=== PATIENT | male | born 1970 | race Two or more races ===

== ENCOUNTER 2021-05-23 18:27 | Inpatient (IN) | payer OTHER ==
[2021-05-23] MEDS ORDERED: ACETAMINOPHEN 325 MG TABLET (FP) PO PRN ×2 (20:58)
[2021-05-23] MEDS ORDERED: BISMUTH SUBSALICYLATE 524 MG/30 ML PO PRN (20:58)
[2021-05-23] MEDS ORDERED: MENTHOL/PHENOL 1 EACH UD MM PRN (20:58)
[2021-05-23] MEDS ORDERED: NICOTINE POLACRILEX 2 MG GUM BUC PRN (20:58)
[2021-05-23] MEDS ORDERED: MAG HYDROX/AL HYDROX/SIMETH 30 ML UNIT-DOSE CUP PO PRN (20:58)
[2021-05-23] MEDS ORDERED: LOPERAMIDE HCL 2 MG CAPSULE PO PRN (20:58)
[2021-05-23] MEDS ORDERED: MAGNESIUM HYDROX 2400MG/30ML ORAL SUSPENSION 30 ML CUP PO PRN (20:58)
[2021-05-23] MEDS ORDERED: MAGNESIUM CITRATE 300 ML BOTTLE PO PRN (20:58)
[2021-05-23] MEDS ORDERED: ONDANSETRON *ODT* 4 MG TABLET SL PRN (20:58)
[2021-05-24 00:05] VITALS: BMI 28.4
[2021-05-24] MEDS: METHOCARBAMOL 500 MG TABLET PO PRN ×3 (02:12→22:17)
[2021-05-24] MEDS: hydrOXYzine PAMOATE 25 MG CAPSULE (FP) PO PRN ×4 (02:12→22:14)
[2021-05-24] MEDS: THIAMINE HCL 100 MG TABLET (FP) PO SCH ×2 (02:25→22:14)
[2021-05-24] MEDS ORDERED: chlordiazePOXIDE HCL 25 MG CAPSULE PO PRN (06:31)
[2021-05-24] MEDS: IBUPROFEN 400 MG TABLET (FP) PO PRN (06:58)
[2021-05-24] MEDS ORDERED: methaDONE HCL 10 MG TABLET PO ONE (08:45)
[2021-05-24] MEDS ORDERED: methaDONE HCL 10 MG TABLET ONE (09:20)
[2021-05-24] MEDS ORDERED: methaDONE HCL 40 MG DISPERSABLE TABLET ONE (09:21)
[2021-05-24] MEDS: chlordiazePOXIDE HCL 25 MG CAPSULE PO SCH ×3 (10:33→22:15)
[2021-05-24] MEDS: PRENATAL VITAMINS W/ FOLIC ACID TABLET (FP) PO SCH (10:35)
[2021-05-24 11:00] LABS: HEMATOCRIT 39.3 % (35.4-49); MCH 30.5 pg (25.7-33.7); MEAN CELL VOLUME 92.5 fl (80-96); MEAN PLT VOLUME 9.6 fl (7.5-11.1); PLATELET COUNT 151 10^3/uL (134-434); RBC 4.24 M/mm3 (4.00-5.60); RDW 13.8 % (11.9-15.9); WHITE BLOOD COUNT 3.3 K/mm3 (4.0-10.0)
[2021-05-24 11:03] LABS: ALBUMIN 3.1 g/dl (3.4-5.0); CALCIUM 8.7 mg/dL (8.5-10.1)
[2021-05-24 11:04] LABS: BLOOD UREA NITROGEN 18.1 mg/dL (7-18)
[2021-05-24 11:07] LABS: CREATININE 0.8 mg/dL (0.55-1.3)
[2021-05-24 11:08] LABS: TOT PROT 6.6 g/dl (6.4-8.2)
[2021-05-24 11:09] LABS: BILIRUBIN,TOTAL 0.3 mg/dL (0.2-1)
[2021-05-24] MEDS: MELATONIN 5 MG TABLETS PO PRN (22:15)
[2021-05-25] MEDS ORDERED: methaDONE HCL 10 MG TABLET ONE (04:34)
[2021-05-25] MEDS ORDERED: methaDONE HCL 40 MG DISPERSABLE TABLET ONE (04:34)
[2021-05-25] MEDS: chlordiazePOXIDE HCL 25 MG CAPSULE PO SCH ×4 (05:45→22:17)
[2021-05-25] MEDS: hydrOXYzine PAMOATE 25 MG CAPSULE (FP) PO PRN ×3 (05:45→15:31)
[2021-05-25] MEDS: METHOCARBAMOL 500 MG TABLET PO PRN ×2 (05:46→15:32)
[2021-05-25] MEDS ORDERED: methaDONE HCL 10 MG TABLET PO SCH (06:00)
[2021-05-25] MEDS: PRENATAL VITAMINS W/ FOLIC ACID TABLET (FP) PO SCH (10:13)
[2021-05-25] MEDS: GABAPENTIN 100 MG CAPSULE PO SCH ×2 (15:31→22:17)
[2021-05-25] MEDS: IBUPROFEN 400 MG TABLET (FP) PO PRN (15:31)
[2021-05-25] MEDS: THIAMINE HCL 100 MG TABLET (FP) PO SCH (22:17)
[2021-05-25] MEDS: MELATONIN 5 MG TABLETS PO PRN (22:17)
[2021-05-26] MEDS ORDERED: methaDONE HCL 10 MG TABLET ONE (04:32)
[2021-05-26] MEDS ORDERED: methaDONE HCL 40 MG DISPERSABLE TABLET ONE (04:32)
[2021-05-26] MEDS: chlordiazePOXIDE HCL 25 MG CAPSULE PO SCH ×4 (06:04→22:12)
[2021-05-26] MEDS: hydrOXYzine PAMOATE 25 MG CAPSULE (FP) PO PRN ×2 (06:06→17:40)
[2021-05-26 10:07] LABS: SARS-CoV-2 NAA Not Detected (Not Detected)
[2021-05-26] MEDS: PRENATAL VITAMINS W/ FOLIC ACID TABLET (FP) PO SCH (10:09)
[2021-05-26] MEDS: GABAPENTIN 100 MG CAPSULE PO SCH ×2 (10:09→22:11)
[2021-05-26] MEDS: METHOCARBAMOL 500 MG TABLET PO PRN (17:38)
[2021-05-26] MEDS: cloNIDine HCL 0.1 MG TABLET PO PRN (22:11)
[2021-05-26] MEDS: THIAMINE HCL 100 MG TABLET (FP) PO SCH (22:11)
[2021-05-27] MEDS ORDERED: chlordiazePOXIDE HCL 10 MG CAPSULE PO PRN
[2021-05-27] MEDS ORDERED: methaDONE HCL 40 MG DISPERSABLE TABLET ONE (04:53)
[2021-05-27] MEDS ORDERED: methaDONE HCL 10 MG TABLET ONE (04:53)
[2021-05-27] MEDS: chlordiazePOXIDE HCL 10 MG CAPSULE PO SCH ×4 (05:41→22:09)
[2021-05-27] MEDS: cloNIDine HCL 0.1 MG TABLET PO PRN (05:42)
[2021-05-27] MEDS ORDERED: LISINOPRIL 10 MG TABLET PO SCH (10:00)
[2021-05-27] MEDS: GABAPENTIN 100 MG CAPSULE PO SCH ×2 (10:04→22:08)
[2021-05-27] MEDS: PRENATAL VITAMINS W/ FOLIC ACID TABLET (FP) PO SCH (10:05)
[2021-05-27] MEDS: METHOCARBAMOL 500 MG TABLET PO PRN (10:51)
[2021-05-27] MEDS: hydrOXYzine PAMOATE 25 MG CAPSULE (FP) PO PRN (18:13)
[2021-05-27 18:34] VITALS: BP 106/77; PULSE 59; TEMP 97.2
[2021-05-27] MEDS: THIAMINE HCL 100 MG TABLET (FP) PO SCH (22:08)
[2021-05-28] MEDS ORDERED: chlordiazePOXIDE HCL 10 MG CAPSULE PO SCH (05:00)
[2021-05-29] MEDS ORDERED: chlordiazePOXIDE HCL 10 MG CAPSULE PO ONE (05:00)
== END 2021-05-27 20:37 | disposition left against medical advice (07) | DRG 770 ==
LOC: YASAS 18:27 → Y3N 20:35
PROVIDERS: ADMIT Allergy & Immunology; ATTEND Allergy & Immunology
PROC: HZ2ZZZZ Detoxification Services for Substance Abuse Treatment (ICD-10-PCS; principal; 2021-05-23)
DX: F10.230 Alcohol dependence with withdrawal, uncomplicated (principal); F11.20 Opioid dependence, uncomplicated; F13.20 Sedative, hypnotic or anxiolytic dependence, uncomplicated; F17.210 Nicotine dependence, cigarettes, uncomplicated; I10 Essential (primary) hypertension; M54.50 Low back pain, unspecified; G89.29 Other chronic pain; R63.4 Abnormal weight loss; Z68.28 Body mass index [BMI] 28.0-28.9, adult
CPT/HCPCS: 36415; 80053; 85027; 86593; 86780; 87811; C9803-CS; J0735; U0003; U0005

== ENCOUNTER 2021-07-18 14:38 | Inpatient (IN) | payer OTHER ==
[2021-07-18] MEDS ORDERED: DICYCLOMINE HCL 10 MG CAPSULE PO PRN (15:25)
[2021-07-18] MEDS ORDERED: MAGNESIUM CITRATE 300 ML BOTTLE PO PRN (15:25)
[2021-07-18] MEDS ORDERED: MAG HYDROX/AL HYDROX/SIMETH 30 ML UNIT-DOSE CUP PO PRN (15:25)
[2021-07-18] MEDS ORDERED: chlordiazePOXIDE HCL 25 MG CAPSULE PO PRN (15:25)
[2021-07-18] MEDS ORDERED: ONDANSETRON *ODT* 4 MG TABLET SL PRN (15:25)
[2021-07-18] MEDS ORDERED: BENZOCAINE/MENTHOL (CHLORASEPTIC ) LOZENGE MM PRN (15:25)
[2021-07-18] MEDS ORDERED: MAGNESIUM HYDROX 2400MG/30ML ORAL SUSPENSION 30 ML CUP PO PRN (15:25)
[2021-07-18] MEDS ORDERED: ACETAMINOPHEN 325 MG TABLET (FP) PO PRN ×2 (15:25)
[2021-07-18] MEDS ORDERED: LOPERAMIDE HCL 2 MG CAPSULE PO PRN (15:25)
[2021-07-18] MEDS ORDERED: NICOTINE 10 MG CARTRIDGE (INHALER) IH PRN (15:25)
[2021-07-18] MEDS ORDERED: BISMUTH SUBSALICYLATE 524 MG/30 ML PO PRN (15:25)
[2021-07-18 16:02] VITALS: BMI 26.7
[2021-07-18] MEDS: chlordiazePOXIDE HCL 25 MG CAPSULE PO SCH ×2 (17:51→22:12)
[2021-07-18] MEDS: NICOTINE 7 MG/24 HOURS TOPICAL PATCH TD SCH (17:52)
[2021-07-18] MEDS: hydrOXYzine PAMOATE 25 MG CAPSULE (FP) PO SCH ×2 (17:52→22:10)
[2021-07-18] MEDS: PRENATAL VITAMINS W/ FOLIC ACID TABLET (FP) PO SCH (17:52)
[2021-07-18] MEDS: THIAMINE HCL 100 MG TABLET (FP) PO SCH (22:10)
[2021-07-18] MEDS: MELATONIN 5 MG TABLETS PO SCH (22:11)
[2021-07-19] MEDS: chlordiazePOXIDE HCL 25 MG CAPSULE PO SCH ×4 (05:18→22:05)
[2021-07-19] MEDS: hydrOXYzine PAMOATE 25 MG CAPSULE (FP) PO SCH ×5 (05:19→22:06)
[2021-07-19] MEDS: NICOTINE 7 MG/24 HOURS TOPICAL PATCH TD SCH (10:04)
[2021-07-19] MEDS: PRENATAL VITAMINS W/ FOLIC ACID TABLET (FP) PO SCH (10:05)
[2021-07-19 10:20] LABS: HEMATOCRIT 40.9 % (35.4-49); HEMOGLOBIN 13.9 GM/dL (11.7-16.9); MCH 30.2 pg (25.7-33.7); MCHC 33.9 g/dl (32.0-35.9); MEAN PLT VOLUME 9.4 fl (7.5-11.1); PLATELET COUNT 125 10^3/uL (134-434); RDW 14.6 % (11.9-15.9); WHITE BLOOD COUNT 2.5 K/mm3 (4.0-10.0)
[2021-07-19 10:37] LABS: CALCIUM 8.8 mg/dL (8.5-10.1)
[2021-07-19 10:38] LABS: ALBUMIN 3.1 g/dl (3.4-5.0); BLOOD UREA NITROGEN 15.6 mg/dL (7-18)
[2021-07-19 10:41] LABS: CREATININE 0.6 mg/dL (0.55-1.3)
[2021-07-19 10:43] LABS: BILIRUBIN,TOTAL 0.5 mg/dL (0.2-1)
[2021-07-19] MEDS: methaDONE HCL 40 MG DISPERSABLE TABLET PO SCH (11:28)
[2021-07-19] MEDS: MELATONIN 5 MG TABLETS PO SCH (22:06)
[2021-07-19] MEDS: THIAMINE HCL 100 MG TABLET (FP) PO SCH (22:06)
[2021-07-20] MEDS: methaDONE HCL 40 MG DISPERSABLE TABLET PO SCH (05:11)
[2021-07-20] MEDS: chlordiazePOXIDE HCL 25 MG CAPSULE PO SCH ×4 (05:12→22:02)
[2021-07-20] MEDS: hydrOXYzine PAMOATE 25 MG CAPSULE (FP) PO SCH ×5 (05:12→22:04)
[2021-07-20] MEDS: PRENATAL VITAMINS W/ FOLIC ACID TABLET (FP) PO SCH (10:34)
[2021-07-20] MEDS: NICOTINE 7 MG/24 HOURS TOPICAL PATCH TD SCH (10:35)
[2021-07-20] MEDS: IBUPROFEN 400 MG TABLET (FP) PO PRN (17:50)
[2021-07-20] MEDS: THIAMINE HCL 100 MG TABLET (FP) PO SCH (22:03)
[2021-07-20] MEDS: MELATONIN 5 MG TABLETS PO SCH (22:04)
[2021-07-21] MEDS ORDERED: chlordiazePOXIDE HCL 10 MG CAPSULE PO PRN
[2021-07-21 00:06] LABS: SARS-CoV-2 NAA Not Detected (Not Detected)
[2021-07-21] MEDS: methaDONE HCL 40 MG DISPERSABLE TABLET PO SCH (05:24)
[2021-07-21] MEDS: chlordiazePOXIDE HCL 10 MG CAPSULE PO SCH ×4 (05:25→22:08)
[2021-07-21] MEDS: hydrOXYzine PAMOATE 25 MG CAPSULE (FP) PO SCH ×5 (07:06→22:07)
[2021-07-21] MEDS: NICOTINE 7 MG/24 HOURS TOPICAL PATCH TD SCH (10:09)
[2021-07-21] MEDS: PRENATAL VITAMINS W/ FOLIC ACID TABLET (FP) PO SCH (10:09)
[2021-07-21] MEDS: METHOCARBAMOL 500 MG TABLET PO PRN ×2 (10:09→17:37)
[2021-07-21 12:06] LABS: HEMATOCRIT 42.2 % (35.4-49); HEMOGLOBIN 13.9 GM/dL (11.7-16.9); MCH 29.7 pg (25.7-33.7); MCHC 32.9 g/dl (32.0-35.9); MEAN CELL VOLUME 90.4 fl (80-96); MEAN PLT VOLUME 9.6 fl (7.5-11.1); PLATELET COUNT 136 10^3/uL (134-434); RBC 4.67 M/mm3 (4.00-5.60); RDW 14.6 % (11.9-15.9); WHITE BLOOD COUNT 3.3 K/mm3 (4.0-10.0)
[2021-07-21 12:12] LABS: CALCIUM 9.2 mg/dL (8.5-10.1)
[2021-07-21 12:13] LABS: ALBUMIN 3.1 g/dl (3.4-5.0); BLOOD UREA NITROGEN 14.3 mg/dL (7-18)
[2021-07-21 12:16] LABS: CREATININE 0.6 mg/dL (0.55-1.3)
[2021-07-21 12:18] LABS: BILIRUBIN,TOTAL 1.2 mg/dL (0.2-1)
[2021-07-21] MEDS: THIAMINE HCL 100 MG TABLET (FP) PO SCH (22:08)
[2021-07-21] MEDS: MELATONIN 5 MG TABLETS PO SCH (22:08)
[2021-07-22] MEDS: chlordiazePOXIDE HCL 10 MG CAPSULE PO SCH ×2 (05:11→17:51)
[2021-07-22] MEDS: methaDONE HCL 40 MG DISPERSABLE TABLET PO SCH (05:12)
[2021-07-22] MEDS: hydrOXYzine PAMOATE 25 MG CAPSULE (FP) PO SCH ×5 (05:13→22:09)
[2021-07-22] MEDS: METHOCARBAMOL 500 MG TABLET PO PRN ×2 (05:13→17:52)
[2021-07-22] MEDS: PRENATAL VITAMINS W/ FOLIC ACID TABLET (FP) PO SCH (10:20)
[2021-07-22] MEDS: NICOTINE 7 MG/24 HOURS TOPICAL PATCH TD SCH (10:21)
[2021-07-22] MEDS: IBUPROFEN 400 MG TABLET (FP) PO PRN (10:22)
[2021-07-22] MEDS: MELATONIN 5 MG TABLETS PO SCH (22:09)
[2021-07-22] MEDS: THIAMINE HCL 100 MG TABLET (FP) PO SCH (22:09)
[2021-07-23] MEDS ORDERED: chlordiazePOXIDE HCL 10 MG CAPSULE PO ONE (05:00)
[2021-07-23] MEDS: methaDONE HCL 40 MG DISPERSABLE TABLET PO SCH (05:16)
[2021-07-23] MEDS: METHOCARBAMOL 500 MG TABLET PO PRN ×2 (05:16→18:15)
[2021-07-23] MEDS: hydrOXYzine PAMOATE 25 MG CAPSULE (FP) PO SCH ×6 (05:16→22:10)
[2021-07-23] MEDS: NICOTINE 7 MG/24 HOURS TOPICAL PATCH TD SCH (10:04)
[2021-07-23] MEDS: PRENATAL VITAMINS W/ FOLIC ACID TABLET (FP) PO SCH (10:04)
[2021-07-23] MEDS: THIAMINE HCL 100 MG TABLET (FP) PO SCH (22:10)
[2021-07-23] MEDS: MELATONIN 5 MG TABLETS PO SCH (22:10)
[2021-07-24] MEDS: hydrOXYzine PAMOATE 25 MG CAPSULE (FP) PO SCH (05:18)
[2021-07-24] MEDS: METHOCARBAMOL 500 MG TABLET PO PRN (05:18)
[2021-07-24] MEDS: methaDONE HCL 40 MG DISPERSABLE TABLET PO SCH (05:18)
[2021-07-24 09:02] VITALS: BP 131/91; PULSE 78; TEMP 96.9
== END 2021-07-24 09:52 | disposition home or self-care (01) | DRG 773 ==
LOC: YASAS 14:38 → Y3N 15:43
PROVIDERS: ADMIT Allergy & Immunology; ATTEND Surgery
PROC: HZ2ZZZZ Detoxification Services for Substance Abuse Treatment (ICD-10-PCS; principal; 2021-07-18)
DX: F10.230 Alcohol dependence with withdrawal, uncomplicated (principal); F11.20 Opioid dependence, uncomplicated; F13.20 Sedative, hypnotic or anxiolytic dependence, uncomplicated; F14.20 Cocaine dependence, uncomplicated; F17.210 Nicotine dependence, cigarettes, uncomplicated; F19.24 Other psychoactive substance dependence with psychoactive substance-induced mood disorder; I10 Essential (primary) hypertension; R76.8 Other specified abnormal immunological findings in serum; Z86.19 Personal history of other infectious and parasitic diseases; Z86.11 Personal history of tuberculosis; Z91.013 Allergy to seafood
CPT/HCPCS: 36415; 80053; 85027; 86593; 86780; C9803-CS; U0003; U0005

== ENCOUNTER 2021-08-17 15:59 | Emergency (ER) | payer OTHER ==
[2021-08-17 16:18] VITALS: TEMP 98.6; BMI 27.3
[2021-08-17] MEDS ORDERED: chlordiazePOXIDE HCL 25 MG CAPSULE PO ONE (17:58)
[2021-08-17] MEDS ORDERED: chlordiazePOXIDE HCL 25 MG CAPSULE ONE (19:09)
[2021-08-17] MEDS ORDERED: LISINOPRIL 20 MG TABLET PO ONE (21:31)
[2021-08-17] MEDS ORDERED: LISINOPRIL 20 MG TABLET ONE (21:44)
[2021-08-17 21:49] LABS: BASO % 0.7 % (0-2.0); EOS % 1.3 % (0-4.5); HEMATOCRIT 42.4 % (35.4-49); HEMOGLOBIN 14.4 GM/dL (11.7-16.9); LYMPH % 26.1 % (8-40); MCH 30.2 pg (25.7-33.7); MCHC 33.8 g/dl (32.0-35.9); MEAN CELL VOLUME 89.3 fl (80-96); MEAN PLT VOLUME 8.3 fl (7.5-11.1); MONO % 8.7 % (3.8-10.2); NEUT % 63.2 % (42.8-82.8); PLATELET COUNT 136 10^3/uL (134-434); RBC 4.75 M/mm3 (4.00-5.60); RDW 16.6 % (11.9-15.9); WHITE BLOOD COUNT 4.3 K/mm3 (4.0-10.0)
[2021-08-17 21:50] VITALS: PULSE 72
[2021-08-17 22:12] LABS: BLOOD UREA NITROGEN 14.3 mg/dL (7-18); CALCIUM 9.1 mg/dL (8.5-10.1)
[2021-08-17 22:13] LABS: ALBUMIN 3.1 g/dl (3.4-5.0)
[2021-08-17 22:15] LABS: CREATININE 0.8 mg/dL (0.55-1.3)
[2021-08-17 22:17] LABS: TOT PROT 7.4 g/dl (6.4-8.2)
[2021-08-18 00:16] VITALS: BP 130/50
== END 2021-08-17 23:34 | disposition short-term general hospital (02) ==
LOC: JER 15:59
DX: F11.23 Opioid dependence with withdrawal (principal); F10.239 Alcohol dependence with withdrawal, unspecified; I10 Essential (primary) hypertension
CPT/HCPCS: 36415; 70450-TC; 71045-TC-FY; 80053; 84484; 85025; 99285-25

== ENCOUNTER 2021-08-18 00:18 | Inpatient (IN) | payer OTHER ==
[2021-08-18] MEDS ORDERED: LOPERAMIDE HCL 2 MG CAPSULE PO PRN (00:36)
[2021-08-18] MEDS ORDERED: DICYCLOMINE HCL 10 MG CAPSULE PO PRN (00:36)
[2021-08-18] MEDS ORDERED: P-EPHED 60MG/TRIPROLIDI 2.5MG TABLET PO PRN (00:36)
[2021-08-18] MEDS ORDERED: NICOTINE POLACRILEX 2 MG GUM BUC PRN (00:36)
[2021-08-18] MEDS ORDERED: MAG HYDROX/AL HYDROX/SIMETH 30 ML UNIT-DOSE CUP PO PRN (00:36)
[2021-08-18] MEDS ORDERED: BISMUTH SUBSALICYLATE 524 MG/30 ML PO PRN (00:36)
[2021-08-18] MEDS ORDERED: IBUPROFEN 400 MG TABLET (FP) PO PRN (00:36)
[2021-08-18] MEDS ORDERED: ACETAMINOPHEN 325 MG TABLET (FP) PO PRN ×2 (00:36)
[2021-08-18] MEDS ORDERED: chlordiazePOXIDE HCL 25 MG CAPSULE PO PRN ×2 (00:36→06:15)
[2021-08-18] MEDS ORDERED: PROCHLORPERAZINE MALEATE 5 MG TABLET PO PRN (00:36)
[2021-08-18] MEDS ORDERED: methaDONE HCL 10 MG TABLET (FOR DETOX USE ONLY) PO ONE ×2 (00:36→10:11)
[2021-08-18] MEDS ORDERED: MAGNESIUM CITRATE 300 ML BOTTLE PO PRN (00:36)
[2021-08-18] MEDS ORDERED: guaiFENesin 200 MG/10 ML 10 ML UNIT-DOSE CUPS PO PRN (00:36)
[2021-08-18] MEDS ORDERED: BENZOCAINE/MENTHOL (CHLORASEPTIC ) LOZENGE MM PRN (00:36)
[2021-08-18] MEDS ORDERED: MAGNESIUM HYDROX 2400MG/30ML ORAL SUSPENSION 30 ML CUP PO PRN (00:36)
[2021-08-18] MEDS ORDERED: cloNIDine HCL 0.1 MG TABLET PO ONE (00:41)
[2021-08-18 01:13] VITALS: BMI 27.3
[2021-08-18] MEDS ORDERED: chlordiazePOXIDE HCL 25 MG CAPSULE PO SCH ×2 (05:00→23:00)
[2021-08-18] MEDS ORDERED: ONDANSETRON *ODT* 4 MG TABLET SL PRN (08:48)
[2021-08-18] MEDS ORDERED: cloNIDine HCL 0.1 MG TABLET ONE (08:50)
[2021-08-18] MEDS: cloNIDine HCL 0.1 MG TABLET PO PRN (09:09)
[2021-08-18] MEDS ORDERED: LORazepam 2 MG TABLET ONE (09:58)
[2021-08-18] MEDS ORDERED: LISINOPRIL 10 MG TABLET ONE (09:59)
[2021-08-18] MEDS: LISINOPRIL 20 MG TABLET PO SCH (10:07)
[2021-08-18] MEDS: LORazepam 2 MG TABLET PO SCH ×3 (10:07→23:11)
[2021-08-18] MEDS ORDERED: methaDONE HCL 10 MG TABLET PO ONE (10:11)
[2021-08-18] MEDS ORDERED: methaDONE HCL 10 MG TABLET (FOR DETOX USE ONLY) ONE (10:14)
[2021-08-18] MEDS: PRENATAL VITAMINS W/ FOLIC ACID TABLET (FP) PO SCH (10:38)
[2021-08-18] MEDS: NICOTINE 21 MG/24 HOURS TOPICAL PATCH TD SCH (10:38)
[2021-08-18] MEDS: METHOCARBAMOL 500 MG TABLET PO PRN ×2 (10:41→18:19)
[2021-08-18] MEDS: LORazepam 1 MG TABLET PO PRN (14:02)
[2021-08-18] MEDS: IBUPROFEN 600 MG TABLET (FP) PO PRN (19:29)
[2021-08-18] MEDS ORDERED: QUEtiapine FUMARATE 100 MG TABLET (FP) PO SCH (22:00)
[2021-08-18] MEDS ORDERED: MELATONIN 5 MG TABLETS PO SCH (22:00)
[2021-08-18] MEDS ORDERED: THIAMINE HCL 100 MG TABLET (FP) PO SCH (22:00)
[2021-08-19] MEDS: cloNIDine HCL 0.1 MG TABLET PO PRN (04:52)
[2021-08-19] MEDS: LORazepam 2 MG TABLET PO SCH ×2 (04:52→10:15)
[2021-08-19] MEDS: METHOCARBAMOL 500 MG TABLET PO PRN (04:54)
[2021-08-19] MEDS ORDERED: chlordiazePOXIDE HCL 25 MG CAPSULE PO SCH (05:00)
[2021-08-19] MEDS: IBUPROFEN 600 MG TABLET (FP) PO PRN (08:03)
[2021-08-19] MEDS: LORazepam 1 MG TABLET PO PRN (08:04)
[2021-08-19] MEDS ORDERED: methaDONE HCL 10 MG TABLET (FOR DETOX USE ONLY) ONE (08:43)
[2021-08-19 09:32] VITALS: BP 120/70; PULSE 89; TEMP 97.1
[2021-08-19] MEDS: PRENATAL VITAMINS W/ FOLIC ACID TABLET (FP) PO SCH (10:15)
[2021-08-19] MEDS: LISINOPRIL 20 MG TABLET PO SCH (10:18)
[2021-08-19] MEDS: NICOTINE 21 MG/24 HOURS TOPICAL PATCH TD SCH (10:18)
[2021-08-19 10:28] LABS: ALBUMIN 3.2 g/dl (3.4-5.0); BLOOD UREA NITROGEN 13.5 mg/dL (7-18); CALCIUM 9.5 mg/dL (8.5-10.1)
[2021-08-19 10:30] LABS: HEMATOCRIT 45.1 % (35.4-49); HEMOGLOBIN 15.3 GM/dL (11.7-16.9); MCH 30.5 pg (25.7-33.7); MCHC 33.8 g/dl (32.0-35.9); MEAN CELL VOLUME 90.2 fl (80-96); MEAN PLT VOLUME 9.2 fl (7.5-11.1); PLATELET COUNT 147 10^3/uL (134-434); RDW 16.6 % (11.9-15.9)
[2021-08-19 10:31] LABS: CREATININE 0.7 mg/dL (0.55-1.3)
[2021-08-19 10:33] LABS: BILIRUBIN,TOTAL 0.9 mg/dL (0.2-1); TOT PROT 7.5 g/dl (6.4-8.2)
[2021-08-20] MEDS ORDERED: chlordiazePOXIDE HCL 10 MG CAPSULE PO PRN
[2021-08-20] MEDS ORDERED: chlordiazePOXIDE HCL 25 MG CAPSULE PO SCH (05:00)
[2021-08-20] MEDS ORDERED: LORazepam 1 MG TABLET PO SCH (05:00)
[2021-08-20] MEDS ORDERED: chlordiazePOXIDE HCL 10 MG CAPSULE PO SCH (05:00)
[2021-08-20] MEDS ORDERED: methaDONE HCL 10 MG TABLET (FOR DETOX USE ONLY) PO ONE (10:00)
[2021-08-21] MEDS ORDERED: LORazepam 0.5 MG TABLET PO PRN
[2021-08-21] MEDS ORDERED: chlordiazePOXIDE HCL 10 MG CAPSULE PO PRN
[2021-08-21] MEDS ORDERED: LORazepam 0.5 MG TABLET PO SCH (05:00)
[2021-08-21] MEDS ORDERED: chlordiazePOXIDE HCL 10 MG CAPSULE PO SCH ×2 (05:00)
[2021-08-22] MEDS ORDERED: chlordiazePOXIDE HCL 10 MG CAPSULE PO SCH (05:00)
[2021-08-22] MEDS ORDERED: chlordiazePOXIDE HCL 10 MG CAPSULE PO ONE (05:00)
[2021-08-22] MEDS ORDERED: LORazepam 0.5 MG TABLET PO ONE (05:00)
[2021-08-22] MEDS ORDERED: methaDONE HCL 10 MG TABLET (FOR DETOX USE ONLY) PO ONE (10:00)
[2021-08-23] MEDS ORDERED: chlordiazePOXIDE HCL 10 MG CAPSULE PO ONE (05:00)
== END 2021-08-19 12:21 | disposition home or self-care (01) | DRG 773 ==
LOC: YASAS 00:18 → Y6N 09:54
PROVIDERS: ADMIT Allergy & Immunology; ATTEND Surgery
PROC: HZ2ZZZZ Detoxification Services for Substance Abuse Treatment (ICD-10-PCS; principal; 2021-08-18)
DX: F11.23 Opioid dependence with withdrawal (principal); F10.230 Alcohol dependence with withdrawal, uncomplicated; F13.20 Sedative, hypnotic or anxiolytic dependence, uncomplicated; F17.210 Nicotine dependence, cigarettes, uncomplicated; F19.280 Other psychoactive substance dependence with psychoactive substance-induced anxiety disorder; F19.282 Other psychoactive substance dependence with psychoactive substance-induced sleep disorder; F19.24 Other psychoactive substance dependence with psychoactive substance-induced mood disorder; F31.9 Bipolar disorder, unspecified; I10 Essential (primary) hypertension; M54.30 Sciatica, unspecified side; M54.50 Low back pain, unspecified; G89.29 Other chronic pain; R76.11 Nonspecific reaction to tuberculin skin test without active tuberculosis; Z86.19 Personal history of other infectious and parasitic diseases; Z56.0 Unemployment, unspecified; Z59.00 Homelessness unspecified
CPT/HCPCS: 36415; 70450-TC; 71045-TC-FY; 80053; 84484; 85025; 85027; 86593; 86780; 99285-25; C9803-CS; J0735; Q0162; U0003; U0005

== ENCOUNTER 2021-11-01 16:42 | Inpatient (IN) | payer OTHER ==
[2021-11-01 17:44] VITALS: BMI 23.6
[2021-11-01] MEDS ORDERED: P-EPHED 60MG/TRIPROLIDI 2.5MG TABLET PO PRN (18:04)
[2021-11-01] MEDS ORDERED: MAGNESIUM HYDROX 2400MG/30ML ORAL SUSPENSION 30 ML CUP PO PRN (18:04)
[2021-11-01] MEDS ORDERED: ONDANSETRON *ODT* 4 MG TABLET SL PRN (18:04)
[2021-11-01] MEDS ORDERED: IBUPROFEN 600 MG TABLET (FP) PO PRN (18:04)
[2021-11-01] MEDS ORDERED: DICYCLOMINE HCL 10 MG CAPSULE PO PRN (18:04)
[2021-11-01] MEDS ORDERED: PROCHLORPERAZINE MALEATE 5 MG TABLET PO PRN (18:04)
[2021-11-01] MEDS ORDERED: ACETAMINOPHEN 325 MG TABLET (FP) PO PRN ×2 (18:04)
[2021-11-01] MEDS ORDERED: MAG HYDROX/AL HYDROX/SIMETH 30 ML UNIT-DOSE CUP PO PRN (18:04)
[2021-11-01] MEDS ORDERED: guaiFENesin 200 MG/10 ML 10 ML UNIT-DOSE CUPS PO PRN (18:04)
[2021-11-01] MEDS ORDERED: MAGNESIUM CITRATE 300 ML BOTTLE PO PRN (18:04)
[2021-11-01] MEDS ORDERED: MELATONIN 5 MG TABLETS PO PRN (18:04)
[2021-11-01] MEDS ORDERED: IBUPROFEN 400 MG TABLET (FP) PO PRN (18:04)
[2021-11-01] MEDS ORDERED: BISMUTH SUBSALICYLATE 524 MG/30 ML PO PRN (18:04)
[2021-11-01] MEDS ORDERED: LOPERAMIDE HCL 2 MG CAPSULE PO PRN (18:04)
[2021-11-01] MEDS ORDERED: BENZOCAINE/MENTHOL (CHLORASEPTIC ) LOZENGE MM PRN (18:04)
[2021-11-01] MEDS ORDERED: chlordiazePOXIDE HCL 25 MG CAPSULE PO PRN (18:07)
[2021-11-01] MEDS ORDERED: methaDONE HCL 10 MG TABLET (FOR DETOX USE ONLY) PO ONE (18:07)
[2021-11-01] MEDS ORDERED: chlordiazePOXIDE HCL 25 MG CAPSULE PO ONE (18:07)
[2021-11-01] MEDS: BACITRACIN 0.9 GM PACKET TP SCH (22:04)
[2021-11-01] MEDS: cloNIDine HCL 0.1 MG TABLET PO PRN (22:05)
[2021-11-01] MEDS: THIAMINE HCL 100 MG TABLET (FP) PO SCH (22:05)
[2021-11-01] MEDS: chlordiazePOXIDE HCL 25 MG CAPSULE PO SCH (22:05)
[2021-11-01] MEDS: hydrOXYzine PAMOATE 25 MG CAPSULE (FP) PO PRN (22:06)
[2021-11-02] MEDS: chlordiazePOXIDE HCL 25 MG CAPSULE PO SCH ×4 (05:16→22:21)
[2021-11-02] MEDS: hydrOXYzine PAMOATE 25 MG CAPSULE (FP) PO PRN ×2 (05:18→17:49)
[2021-11-02] MEDS: cloNIDine HCL 0.1 MG TABLET PO PRN ×3 (05:18→22:21)
[2021-11-02] MEDS: PRENATAL VITAMINS W/ FOLIC ACID TABLET (FP) PO SCH (10:42)
[2021-11-02] MEDS: BACITRACIN 0.9 GM PACKET TP SCH ×2 (10:43→22:22)
[2021-11-02 11:42] LABS: HEMATOCRIT 43.2 % (35.4-49); HEMOGLOBIN 14.5 GM/dL (11.7-16.9); MCH 30.9 pg (25.7-33.7); MCHC 33.6 g/dl (32.0-35.9); MEAN CELL VOLUME 91.9 fl (80-96); MEAN PLT VOLUME 9.5 fl (7.5-11.1); PLATELET COUNT 151 10^3/uL (134-434); RDW 13.1 % (11.9-15.9); WHITE BLOOD COUNT 2.5 K/mm3 (4.0-10.0)
[2021-11-02 12:06] LABS: CALCIUM 8.8 mg/dL (8.5-10.1)
[2021-11-02 12:07] LABS: ALBUMIN 2.9 g/dl (3.4-5.0); BLOOD UREA NITROGEN 15.6 mg/dL (7-18)
[2021-11-02 12:10] LABS: CREATININE 0.6 mg/dL (0.55-1.3)
[2021-11-02 12:12] LABS: BILIRUBIN,TOTAL 0.7 mg/dL (0.2-1); TOT PROT 6.9 g/dl (6.4-8.2)
[2021-11-02 15:28] LABS: HIV INTERPRETATION NEGATIVE (NEGATIVE)
[2021-11-02] MEDS: METHOCARBAMOL 500 MG TABLET PO PRN (17:49)
[2021-11-02] MEDS: THIAMINE HCL 100 MG TABLET (FP) PO SCH (22:21)
[2021-11-03] MEDS: chlordiazePOXIDE HCL 25 MG CAPSULE PO SCH ×2 (05:04→10:05)
[2021-11-03] MEDS: hydrOXYzine PAMOATE 25 MG CAPSULE (FP) PO PRN ×2 (05:05→13:52)
[2021-11-03] MEDS: cloNIDine HCL 0.1 MG TABLET PO PRN (05:06)
[2021-11-03 06:10] VITALS: RESP 18
[2021-11-03 09:10] VITALS: TEMP 97.8
[2021-11-03] MEDS ORDERED: methaDONE HCL 10 MG TABLET (FOR DETOX USE ONLY) PO ONE (10:00)
[2021-11-03] MEDS ORDERED: LISINOPRIL 20 MG TABLET PO SCH (10:00)
[2021-11-03] MEDS: PRENATAL VITAMINS W/ FOLIC ACID TABLET (FP) PO SCH (10:05)
[2021-11-03] MEDS: BACITRACIN 0.9 GM PACKET TP SCH (10:05)
[2021-11-03] MEDS: METHOCARBAMOL 500 MG TABLET PO PRN (10:08)
[2021-11-03] MEDS: NICOTINE POLACRILEX 2 MG GUM BUC PRN ×2 (10:42→13:52)
[2021-11-03 11:03] LABS: ALBUMIN 2.8 g/dl (3.4-5.0); BLOOD UREA NITROGEN 13.6 mg/dL (7-18); CALCIUM 8.8 mg/dL (8.5-10.1)
[2021-11-03 11:06] LABS: CREATININE 0.7 mg/dL (0.55-1.3)
[2021-11-03 11:08] LABS: BILIRUBIN,TOTAL 0.6 mg/dL (0.2-1); TOT PROT 6.9 g/dl (6.4-8.2)
[2021-11-03 13:40] VITALS: BP 147/100; PULSE 36
[2021-11-04] MEDS ORDERED: chlordiazePOXIDE HCL 10 MG CAPSULE PO PRN
[2021-11-04] MEDS ORDERED: chlordiazePOXIDE HCL 10 MG CAPSULE PO SCH (05:00)
[2021-11-05] MEDS ORDERED: chlordiazePOXIDE HCL 10 MG CAPSULE PO SCH (05:00)
[2021-11-05] MEDS ORDERED: methaDONE HCL 10 MG TABLET (FOR DETOX USE ONLY) PO ONE (10:00)
[2021-11-06] MEDS ORDERED: chlordiazePOXIDE HCL 10 MG CAPSULE PO ONE (05:00)
== END 2021-11-03 16:30 | disposition left against medical advice (07) | DRG 770 ==
LOC: YASAS 16:42 → Y3N 19:15
PROVIDERS: ADMIT Allergy & Immunology; ATTEND Surgery
PROC: HZ2ZZZZ Detoxification Services for Substance Abuse Treatment (ICD-10-PCS; principal; 2021-11-01)
DX: F11.23 Opioid dependence with withdrawal (principal); F10.230 Alcohol dependence with withdrawal, uncomplicated; F14.20 Cocaine dependence, uncomplicated; F17.210 Nicotine dependence, cigarettes, uncomplicated; I10 Essential (primary) hypertension; R00.1 Bradycardia, unspecified; M54.40 Lumbago with sciatica, unspecified side; G89.29 Other chronic pain; Z91.013 Allergy to seafood
CPT/HCPCS: 36415; 80053; 85027; 86593; 86780; 87389; 87811; 93005; 93010; C9803-CS; U0003; U0005

== ENCOUNTER 2021-12-12 15:30 | Inpatient (IN) | payer OTHER ==
[2021-12-12 16:52] VITALS: BMI 22.8
[2021-12-12] MEDS ORDERED: LOPERAMIDE HCL 2 MG CAPSULE PO PRN (17:14)
[2021-12-12] MEDS ORDERED: NICOTINE POLACRILEX 2 MG GUM BUC PRN (17:14)
[2021-12-12] MEDS ORDERED: IBUPROFEN 400 MG TABLET (FP) PO PRN (17:14)
[2021-12-12] MEDS ORDERED: BISMUTH SUBSALICYLATE 524 MG/30 ML PO PRN (17:14)
[2021-12-12] MEDS ORDERED: DICYCLOMINE HCL 10 MG CAPSULE PO PRN (17:14)
[2021-12-12] MEDS ORDERED: BENZOCAINE/MENTHOL (CHLORASEPTIC ) LOZENGE MM PRN (17:14)
[2021-12-12] MEDS ORDERED: ACETAMINOPHEN 325 MG TABLET (FP) PO PRN ×2 (17:14)
[2021-12-12] MEDS ORDERED: MAGNESIUM HYDROX 2400MG/30ML ORAL SUSPENSION 30 ML CUP PO PRN (17:14)
[2021-12-12] MEDS ORDERED: MAGNESIUM CITRATE 300 ML BOTTLE PO PRN (17:14)
[2021-12-12] MEDS ORDERED: MAG HYDROX/AL HYDROX/SIMETH 30 ML UNIT-DOSE CUP PO PRN (17:14)
[2021-12-12] MEDS ORDERED: NALOXONE HCL (KLOXXADO) 8 MG SPRAY NS PRN (17:14)
[2021-12-12] MEDS ORDERED: methaDONE HCL 10 MG TABLET (FOR DETOX USE ONLY) PO ONE (17:14)
[2021-12-12] MEDS: chlordiazePOXIDE HCL 25 MG CAPSULE PO PRN (18:14)
[2021-12-12] MEDS: IBUPROFEN 600 MG TABLET (FP) PO PRN (18:15)
[2021-12-12] MEDS: cloNIDine HCL 0.1 MG TABLET PO PRN ×2 (18:16→22:09)
[2021-12-12] MEDS: MELATONIN 5 MG TABLETS PO SCH (22:07)
[2021-12-12] MEDS: THIAMINE HCL 100 MG TABLET (FP) PO SCH (22:07)
[2021-12-12] MEDS: chlordiazePOXIDE HCL 25 MG CAPSULE PO SCH (22:07)
[2021-12-12] MEDS: METHOCARBAMOL 500 MG TABLET PO PRN (22:09)
[2021-12-13] MEDS: chlordiazePOXIDE HCL 25 MG CAPSULE PO SCH ×4 (05:33→22:05)
[2021-12-13] MEDS: IBUPROFEN 600 MG TABLET (FP) PO PRN ×2 (05:33→17:44)
[2021-12-13] MEDS: PRENATAL VITAMINS W/ FOLIC ACID TABLET (FP) PO SCH (10:11)
[2021-12-13] MEDS: METHOCARBAMOL 500 MG TABLET PO PRN (10:11)
[2021-12-13] MEDS: cloNIDine HCL 0.1 MG TABLET PO PRN ×3 (10:12→22:11)
[2021-12-13] MEDS: NICOTINE 7 MG/24 HOURS TOPICAL PATCH TD SCH (10:13)
[2021-12-13 13:47] LABS: HEMATOCRIT 42.1 % (35.4-49); HEMOGLOBIN 13.7 GM/dL (11.7-16.9); MCH 30.3 pg (25.7-33.7); MCHC 32.6 g/dl (32.0-35.9); MEAN CELL VOLUME 93.2 fl (80-96); MEAN PLT VOLUME 9.1 fl (7.5-11.1); PLATELET COUNT 151 10^3/uL (134-434); RBC 4.52 M/mm3 (4.00-5.60); RDW 14.2 % (11.9-15.9); WHITE BLOOD COUNT 2.2 K/mm3 (4.0-10.0)
[2021-12-13 13:53] LABS: ALBUMIN 2.8 g/dl (3.4-5.0); BLOOD UREA NITROGEN 14.6 mg/dL (7-18); CALCIUM 9.2 mg/dL (8.5-10.1)
[2021-12-13 13:56] LABS: BILIRUBIN,TOTAL 0.5 mg/dL (0.2-1); CREATININE 0.7 mg/dL (0.55-1.3); TOT PROT 6.6 g/dl (6.4-8.2)
[2021-12-13] MEDS: THIAMINE HCL 100 MG TABLET (FP) PO SCH (22:05)
[2021-12-13] MEDS: MELATONIN 5 MG TABLETS PO SCH (22:05)
[2021-12-14] MEDS: cloNIDine HCL 0.1 MG TABLET PO PRN ×3 (05:22→14:00)
[2021-12-14] MEDS: chlordiazePOXIDE HCL 25 MG CAPSULE PO SCH ×2 (05:22→10:12)
[2021-12-14 09:11] VITALS: RESP 18
[2021-12-14] MEDS ORDERED: methaDONE HCL 10 MG TABLET (FOR DETOX USE ONLY) PO ONE (10:00)
[2021-12-14] MEDS: PRENATAL VITAMINS W/ FOLIC ACID TABLET (FP) PO SCH (10:11)
[2021-12-14] MEDS: METHOCARBAMOL 500 MG TABLET PO PRN (10:11)
[2021-12-14] MEDS: NICOTINE 7 MG/24 HOURS TOPICAL PATCH TD SCH (10:13)
[2021-12-14 13:21] VITALS: BP 141/91; PULSE 58; TEMP 97.5
[2021-12-14] MEDS: IBUPROFEN 600 MG TABLET (FP) PO PRN (14:00)
[2021-12-14] MEDS: chlordiazePOXIDE HCL 25 MG CAPSULE PO PRN (14:00)
[2021-12-15] MEDS ORDERED: chlordiazePOXIDE HCL 10 MG CAPSULE PO PRN
[2021-12-15] MEDS ORDERED: chlordiazePOXIDE HCL 10 MG CAPSULE PO SCH (05:00)
[2021-12-16] MEDS ORDERED: chlordiazePOXIDE HCL 10 MG CAPSULE PO SCH (05:00)
[2021-12-16] MEDS ORDERED: methaDONE HCL 10 MG TABLET (FOR DETOX USE ONLY) PO ONE (10:00)
[2021-12-17] MEDS ORDERED: chlordiazePOXIDE HCL 10 MG CAPSULE PO ONE (05:00)
== END 2021-12-14 15:42 | disposition left against medical advice (07) | DRG 770 ==
LOC: YASAS 15:30 → Y3N 17:26
PROVIDERS: ADMIT Allergy & Immunology; ATTEND Surgery
PROC: HZ2ZZZZ Detoxification Services for Substance Abuse Treatment (ICD-10-PCS; principal; 2021-12-12)
DX: F11.23 Opioid dependence with withdrawal (principal); F10.230 Alcohol dependence with withdrawal, uncomplicated; F14.20 Cocaine dependence, uncomplicated; F12.10 Cannabis abuse, uncomplicated; F17.210 Nicotine dependence, cigarettes, uncomplicated; I10 Essential (primary) hypertension; M54.42 Lumbago with sciatica, left side; M54.41 Lumbago with sciatica, right side; G89.29 Other chronic pain; R76.8 Other specified abnormal immunological findings in serum
CPT/HCPCS: 36415; 80053; 85027; 86593; 86780; C9803-CS; U0003; U0005

== ENCOUNTER 2022-01-15 17:41 | Inpatient (IN) | payer OTHER ==
[2022-01-15] MEDS: METHOCARBAMOL 500 MG TABLET PO PRN (11:25)
[2022-01-15 18:06] VITALS: BMI 21.9
[2022-01-15] MEDS ORDERED: ACETAMINOPHEN 325 MG TABLET (FP) PO PRN ×2 (20:35)
[2022-01-15] MEDS ORDERED: MAG HYDROX/AL HYDROX/SIMETH 30 ML UNIT-DOSE CUP PO PRN (20:35)
[2022-01-15] MEDS ORDERED: DICYCLOMINE HCL 10 MG CAPSULE PO PRN (20:35)
[2022-01-15] MEDS ORDERED: BENZOCAINE/MENTHOL (CHLORASEPTIC ) LOZENGE MM PRN (20:35)
[2022-01-15] MEDS ORDERED: IBUPROFEN 600 MG TABLET (FP) PO PRN (20:35)
[2022-01-15] MEDS ORDERED: NALOXONE HCL (KLOXXADO) 8 MG SPRAY NS PRN (20:35)
[2022-01-15] MEDS ORDERED: BISMUTH SUBSALICYLATE 524 MG/30 ML PO PRN (20:35)
[2022-01-15] MEDS ORDERED: NICOTINE POLACRILEX 2 MG GUM BUC PRN (20:35)
[2022-01-15] MEDS ORDERED: IBUPROFEN 400 MG TABLET (FP) PO PRN (20:35)
[2022-01-15] MEDS ORDERED: ONDANSETRON *ODT* 4 MG TABLET SL PRN (20:35)
[2022-01-15] MEDS ORDERED: MAGNESIUM HYDROX 2400MG/30ML ORAL SUSPENSION 30 ML CUP PO PRN (20:35)
[2022-01-15] MEDS ORDERED: LOPERAMIDE HCL 2 MG CAPSULE PO PRN (20:35)
[2022-01-15] MEDS ORDERED: hydrOXYzine PAMOATE 25 MG CAPSULE (FP) PO PRN (20:35)
[2022-01-15] MEDS: THIAMINE HCL 100 MG TABLET (FP) PO SCH (23:34)
[2022-01-15] MEDS: MELATONIN 5 MG TABLETS PO SCH (23:36)
[2022-01-16] MEDS ORDERED: methaDONE HCL 10 MG TABLET (FOR DETOX USE ONLY) PO ONE (10:17)
[2022-01-16] MEDS ORDERED: cloNIDine HCL 0.1 MG TABLET PO PRN (10:17)
[2022-01-16] MEDS ORDERED: chlordiazePOXIDE HCL 25 MG CAPSULE PO PRN (10:17)
[2022-01-16] MEDS: chlordiazePOXIDE HCL 25 MG CAPSULE PO SCH ×3 (10:40→23:04)
[2022-01-16] MEDS: LISINOPRIL 20 MG TABLET PO SCH (10:40)
[2022-01-16] MEDS: PRENATAL VITAMINS W/ FOLIC ACID TABLET (FP) PO SCH (10:43)
[2022-01-16] MEDS: NICOTINE 14 MG/24 HOURS TOPICAL PATCH TD SCH (10:43)
[2022-01-16 10:44] LABS: HEMATOCRIT 39.9 % (35.4-49); HEMOGLOBIN 13.5 GM/dL (11.7-16.9); MCH 30.6 pg (25.7-33.7); MCHC 33.9 g/dl (32.0-35.9); MEAN CELL VOLUME 90.2 fl (80-96); MEAN PLT VOLUME 9.5 fl (7.5-11.1); PLATELET COUNT 124 10^3/uL (134-434); RBC 4.42 M/mm3 (4.00-5.60); WHITE BLOOD COUNT 2.5 K/mm3 (4.0-10.0)
[2022-01-16 10:48] LABS: CALCIUM 8.7 mg/dL (8.5-10.1)
[2022-01-16 10:49] LABS: ALBUMIN 2.9 g/dl (3.4-5.0); BLOOD UREA NITROGEN 11.6 mg/dL (7-18)
[2022-01-16 10:52] LABS: CREATININE 0.6 mg/dL (0.55-1.3)
[2022-01-16 10:53] LABS: BILIRUBIN,TOTAL 0.6 mg/dL (0.2-1); TOT PROT 7.2 g/dl (6.4-8.2)
[2022-01-16] MEDS ORDERED: QUEtiapine FUMARATE 100 MG TABLET (FP) PO SCH (22:00)
[2022-01-16] MEDS: THIAMINE HCL 100 MG TABLET (FP) PO SCH (23:04)
[2022-01-16] MEDS: MELATONIN 5 MG TABLETS PO SCH (23:04)
[2022-01-17] MEDS: chlordiazePOXIDE HCL 25 MG CAPSULE PO SCH ×2 (06:23→10:31)
[2022-01-17] MEDS: METHOCARBAMOL 500 MG TABLET PO PRN (06:34)
[2022-01-17 09:37] VITALS: RESP 16
[2022-01-17] MEDS: NICOTINE 14 MG/24 HOURS TOPICAL PATCH TD SCH (10:30)
[2022-01-17] MEDS: PRENATAL VITAMINS W/ FOLIC ACID TABLET (FP) PO SCH (10:30)
[2022-01-17] MEDS: LISINOPRIL 20 MG TABLET PO SCH (10:31)
[2022-01-17 12:59] VITALS: BP 143/89; PULSE 60; TEMP 97.8
[2022-01-18] MEDS ORDERED: chlordiazePOXIDE HCL 25 MG CAPSULE PO SCH (05:00)
[2022-01-18] MEDS ORDERED: methaDONE HCL 10 MG TABLET (FOR DETOX USE ONLY) PO ONE (10:00)
[2022-01-19] MEDS ORDERED: chlordiazePOXIDE HCL 10 MG CAPSULE PO PRN
[2022-01-19] MEDS ORDERED: chlordiazePOXIDE HCL 10 MG CAPSULE PO SCH (05:00)
[2022-01-20] MEDS ORDERED: chlordiazePOXIDE HCL 10 MG CAPSULE PO SCH (05:00)
[2022-01-20] MEDS ORDERED: methaDONE HCL 10 MG TABLET (FOR DETOX USE ONLY) PO ONE (10:00)
[2022-01-21] MEDS ORDERED: chlordiazePOXIDE HCL 10 MG CAPSULE PO ONE (05:00)
== END 2022-01-17 15:33 | disposition left against medical advice (07) | DRG 770 ==
LOC: YASAS 17:41 → Y3N 22:57
PROVIDERS: ADMIT Allergy & Immunology; ATTEND Psychiatry & Neurology Psychiatry
PROC: HZ2ZZZZ Detoxification Services for Substance Abuse Treatment (ICD-10-PCS; principal; 2022-01-15)
DX: F11.23 Opioid dependence with withdrawal (principal); F10.230 Alcohol dependence with withdrawal, uncomplicated; F14.20 Cocaine dependence, uncomplicated; F12.20 Cannabis dependence, uncomplicated; F17.210 Nicotine dependence, cigarettes, uncomplicated; F31.9 Bipolar disorder, unspecified; F19.24 Other psychoactive substance dependence with psychoactive substance-induced mood disorder; U07.1 COVID-19; I10 Essential (primary) hypertension; M54.41 Lumbago with sciatica, right side; M54.42 Lumbago with sciatica, left side; G89.29 Other chronic pain; Z91.013 Allergy to seafood
CPT/HCPCS: 36415; 80053; 85027; 86593; 86780; 87811; C9803-CS; U0003; U0005

== ENCOUNTER 2022-03-26 16:11 | Inpatient (IN) | payer OTHER ==
[2022-03-26 17:58] VITALS: BMI 20.9
[2022-03-26] MEDS ORDERED: ACETAMINOPHEN 325 MG TABLET (FP) PO PRN ×2 (20:08)
[2022-03-26] MEDS ORDERED: NICOTINE POLACRILEX 2 MG GUM BUC PRN (20:08)
[2022-03-26] MEDS ORDERED: IBUPROFEN 400 MG TABLET (FP) PO PRN (20:08)
[2022-03-26] MEDS ORDERED: MAG HYDROX/AL HYDROX/SIMETH 30 ML UNIT-DOSE CUP PO PRN (20:08)
[2022-03-26] MEDS ORDERED: ONDANSETRON *ODT* 4 MG TABLET SL PRN (20:08)
[2022-03-26] MEDS ORDERED: DICYCLOMINE HCL 10 MG CAPSULE PO PRN (20:08)
[2022-03-26] MEDS ORDERED: methaDONE HCL 10 MG TABLET (FOR DETOX USE ONLY) PO ONE ×2 (20:08→22:30)
[2022-03-26] MEDS ORDERED: BISMUTH SUBSALICYLATE 524 MG/30 ML PO PRN (20:08)
[2022-03-26] MEDS ORDERED: MAGNESIUM HYDROX 2400MG/30ML ORAL SUSPENSION 30 ML CUP PO PRN (20:08)
[2022-03-26] MEDS ORDERED: NALOXONE HCL (KLOXXADO) 8 MG SPRAY NS PRN (20:08)
[2022-03-26] MEDS ORDERED: POLYETHYLENE GLYCOL (HEALTHYLAX) 3350 17 GM PACKET PO PRN (20:08)
[2022-03-26] MEDS ORDERED: IBUPROFEN 600 MG TABLET (FP) PO PRN (20:08)
[2022-03-26] MEDS ORDERED: BENZOCAINE/MENTHOL (CHLORASEPTIC ) LOZENGE MM PRN (20:08)
[2022-03-26] MEDS ORDERED: LOPERAMIDE HCL 2 MG CAPSULE PO PRN (20:08)
[2022-03-26] MEDS: cloNIDine HCL 0.1 MG TABLET PO PRN (22:35)
[2022-03-26] MEDS: METHOCARBAMOL 500 MG TABLET PO PRN (22:36)
[2022-03-26] MEDS: MELATONIN 5 MG TABLETS PO SCH (22:36)
[2022-03-26] MEDS: THIAMINE HCL 100 MG TABLET (FP) PO SCH (22:36)
[2022-03-26] MEDS: diazePAM 5 MG TABLET PO PRN (22:37)
[2022-03-27] MEDS: diazePAM 5 MG TABLET PO PRN ×3 (06:11→18:18)
[2022-03-27] MEDS: cloNIDine HCL 0.1 MG TABLET PO PRN (06:11)
[2022-03-27] MEDS: METHOCARBAMOL 500 MG TABLET PO PRN ×2 (09:40→22:02)
[2022-03-27] MEDS: NICOTINE 14 MG/24 HOURS TOPICAL PATCH TD SCH (09:40)
[2022-03-27] MEDS: PRENATAL VITAMINS W/ FOLIC ACID TABLET (FP) PO SCH (09:40)
[2022-03-27] MEDS: LISINOPRIL 20 MG TABLET PO SCH (09:40)
[2022-03-27 11:30] LABS: HEMATOCRIT 41.6 % (35.4-49); HEMOGLOBIN 13.8 GM/dL (11.7-16.9); MCH 30.8 pg (25.7-33.7); MCHC 33.3 g/dl (32.0-35.9); MEAN CELL VOLUME 92.6 fl (80-96); MEAN PLT VOLUME 9.4 fl (7.5-11.1); PLATELET COUNT 143 10^3/uL (134-434); WHITE BLOOD COUNT 2.4 K/mm3 (4.0-10.0)
[2022-03-27 12:45] LABS: ALBUMIN 3.1 g/dl (3.4-5.0); CALCIUM 8.8 mg/dL (8.5-10.1)
[2022-03-27 12:46] LABS: BLOOD UREA NITROGEN 15.8 mg/dL (7-18)
[2022-03-27 12:48] LABS: CREATININE 0.7 mg/dL (0.55-1.3)
[2022-03-27 12:49] LABS: TOT PROT 7.2 g/dl (6.4-8.2)
[2022-03-27 12:50] LABS: BILIRUBIN,TOTAL 0.5 mg/dL (0.2-1)
[2022-03-27] MEDS: GABAPENTIN 300 MG CAPSULE PO SCH ×2 (14:12→22:03)
[2022-03-27] MEDS ORDERED: QUEtiapine FUMARATE 100 MG TABLET (FP) PO SCH (22:00)
[2022-03-27] MEDS: MELATONIN 5 MG TABLETS PO SCH (22:03)
[2022-03-27] MEDS: THIAMINE HCL 100 MG TABLET (FP) PO SCH (22:03)
[2022-03-28] MEDS: diazePAM 5 MG TABLET PO PRN ×3 (05:46→17:25)
[2022-03-28] MEDS: cloNIDine HCL 0.1 MG TABLET PO PRN ×2 (05:46→17:26)
[2022-03-28] MEDS ORDERED: methaDONE HCL 10 MG TABLET (FOR DETOX USE ONLY) PO ONE (10:00)
[2022-03-28] MEDS: LISINOPRIL 20 MG TABLET PO SCH (10:13)
[2022-03-28] MEDS: PRENATAL VITAMINS W/ FOLIC ACID TABLET (FP) PO SCH (10:13)
[2022-03-28] MEDS: GABAPENTIN 300 MG CAPSULE PO SCH (10:13)
[2022-03-28] MEDS: NICOTINE 14 MG/24 HOURS TOPICAL PATCH TD SCH (10:15)
[2022-03-28] MEDS: METHOCARBAMOL 500 MG TABLET PO PRN (10:16)
[2022-03-28 17:49] VITALS: BP 142/91; PULSE 82; RESP 17; TEMP 97.8
[2022-03-30] MEDS ORDERED: methaDONE HCL 10 MG TABLET (FOR DETOX USE ONLY) PO ONE (10:00)
== END 2022-03-28 18:24 | disposition left against medical advice (07) | DRG 770 ==
LOC: YASAS 16:11 → Y3N 21:39
PROVIDERS: ADMIT Allergy & Immunology; ATTEND Family Medicine
PROC: HZ2ZZZZ Detoxification Services for Substance Abuse Treatment (ICD-10-PCS; principal; 2022-03-26)
DX: F11.23 Opioid dependence with withdrawal (principal); F10.230 Alcohol dependence with withdrawal, uncomplicated; F14.20 Cocaine dependence, uncomplicated; F12.20 Cannabis dependence, uncomplicated; F17.210 Nicotine dependence, cigarettes, uncomplicated; F31.9 Bipolar disorder, unspecified; F19.24 Other psychoactive substance dependence with psychoactive substance-induced mood disorder; G62.9 Polyneuropathy, unspecified; I10 Essential (primary) hypertension; M54.41 Lumbago with sciatica, right side; G89.29 Other chronic pain; R76.11 Nonspecific reaction to tuberculin skin test without active tuberculosis; Z91.013 Allergy to seafood
CPT/HCPCS: 36415; 80053; 85027; 86593; 86780; 87811; C9803-CS; U0003; U0005

== ENCOUNTER 2022-10-22 14:19 | Inpatient (IN) | payer OTHER ==
[2022-10-22 15:08] VITALS: BMI 22.8
[2022-10-22] MEDS ORDERED: ONDANSETRON *ODT* 4 MG TABLET SL PRN (19:48)
[2022-10-22] MEDS ORDERED: MAGNESIUM HYDROX 2400MG/30ML ORAL SUSPENSION 30 ML CUP PO PRN (19:48)
[2022-10-22] MEDS ORDERED: BISMUTH SUBSALICYLATE 524 MG/30 ML PO PRN (19:48)
[2022-10-22] MEDS ORDERED: NALOXONE HCL 0.4 MG/ML VIAL IM PRN (19:48)
[2022-10-22] MEDS ORDERED: DICYCLOMINE HCL 10 MG CAPSULE PO PRN (19:48)
[2022-10-22] MEDS ORDERED: IBUPROFEN 400 MG TABLET (FP) PO PRN (19:48)
[2022-10-22] MEDS ORDERED: NALOXONE HCL (KLOXXADO) 8 MG SPRAY NS PRN (19:48)
[2022-10-22] MEDS ORDERED: guaiFENesin 600 MG TABLET.ER (FP) PO PRN (19:48)
[2022-10-22] MEDS ORDERED: LOPERAMIDE HCL 2 MG CAPSULE PO PRN (19:48)
[2022-10-22] MEDS ORDERED: IBUPROFEN 600 MG TABLET (FP) PO PRN (19:48)
[2022-10-22] MEDS ORDERED: MAG HYDROX/AL HYDROX/SIMETH 30 ML UNIT-DOSE CUP PO PRN (19:48)
[2022-10-22] MEDS ORDERED: POLYETHYLENE GLYCOL (HEALTHYLAX) 3350 17 GM PACKET PO PRN (19:48)
[2022-10-22] MEDS ORDERED: ACETAMINOPHEN 325 MG TABLET (FP) PO PRN (19:48)
[2022-10-22] MEDS ORDERED: BENZONATATE 200 MG CAPSULE PO PRN (19:48)
[2022-10-22] MEDS ORDERED: BENZOCAINE/MENTHOL (CHLORASEPTIC ) LOZENGE MM PRN (19:48)
[2022-10-22] MEDS: METHOCARBAMOL 500 MG TABLET PO PRN (22:11)
[2022-10-22] MEDS: THIAMINE HCL 100 MG TABLET (FP) PO SCH (22:11)
[2022-10-22] MEDS: MELATONIN 5 MG TABLETS PO SCH (22:11)
[2022-10-22] MEDS: hydrOXYzine PAMOATE 25 MG CAPSULE (FP) PO PRN (22:11)
[2022-10-22] MEDS: diazePAM 5 MG TABLET PO SCH (22:12)
[2022-10-23] MEDS: diazePAM 5 MG TABLET PO SCH ×4 (05:43→22:14)
[2022-10-23] MEDS: hydrOXYzine PAMOATE 25 MG CAPSULE (FP) PO PRN ×3 (05:45→22:13)
[2022-10-23] MEDS: PRENATAL VITAMINS W/ FOLIC ACID TABLET (FP) PO SCH (10:11)
[2022-10-23] MEDS: METHOCARBAMOL 500 MG TABLET PO PRN ×2 (10:13→22:13)
[2022-10-23] MEDS ORDERED: methaDONE HCL 10 MG TABLET PO SCH (10:15)
[2022-10-23] MEDS ORDERED: methaDONE 40 MG, methaDONE 30 MG PO ONE (10:30)
[2022-10-23 10:41] LABS: HEMATOCRIT 37.7 % (35.4-49); MCH 30.8 pg (25.7-33.7); MCHC 34.5 g/dl (32.0-35.9); MEAN CELL VOLUME 89.4 fl (80-96); PLATELET COUNT 115 10^3/uL (134-434); RBC 4.22 M/mm3 (4.00-5.60); RDW 14.8 % (11.9-15.9); WHITE BLOOD COUNT 2.7 K/mm3 (4.0-10.0)
[2022-10-23 10:52] LABS: POTASSIUM 4.6 mmol/L (3.5-5.1)
[2022-10-23 11:16] LABS: ALBUMIN 3.1 g/dl (3.4-5.0); BLOOD UREA NITROGEN 21.9 mg/dL (7-18)
[2022-10-23 11:17] LABS: BILIRUBIN,TOTAL 0.6 mg/dL (0.2-1)
[2022-10-23 11:19] LABS: CREATININE 0.8 mg/dL (0.55-1.3)
[2022-10-23 11:21] LABS: TOT PROT 7.1 g/dl (6.4-8.2)
[2022-10-23] MEDS: GABAPENTIN 300 MG CAPSULE PO SCH ×2 (13:40→22:14)
[2022-10-23 13:56] LABS: HIV INTERPRETATION NEGATIVE (NEGATIVE)
[2022-10-23] MEDS: THIAMINE HCL 100 MG TABLET (FP) PO SCH (22:13)
[2022-10-23] MEDS: MELATONIN 5 MG TABLETS PO SCH (22:13)
[2022-10-23] MEDS: QUEtiapine FUMARATE 100 MG TABLET (FP) PO SCH (22:14)
[2022-10-24] MEDS: diazePAM 5 MG TABLET PO SCH ×3 (05:49→22:35)
[2022-10-24] MEDS: GABAPENTIN 300 MG CAPSULE PO SCH ×3 (05:49→22:34)
[2022-10-24] MEDS: methaDONE 40 MG, methaDONE 30 MG PO SCH (05:50)
[2022-10-24] MEDS: PRENATAL VITAMINS W/ FOLIC ACID TABLET (FP) PO SCH (09:49)
[2022-10-24] MEDS: diazePAM 5 MG TABLET PO PRN ×2 (09:49→20:12)
[2022-10-24] MEDS: hydrOXYzine PAMOATE 25 MG CAPSULE (FP) PO PRN (09:49)
[2022-10-24] MEDS: METHOCARBAMOL 500 MG TABLET PO PRN (22:34)
[2022-10-24] MEDS: THIAMINE HCL 100 MG TABLET (FP) PO SCH (22:34)
[2022-10-24] MEDS: MELATONIN 5 MG TABLETS PO SCH (22:34)
[2022-10-24] MEDS: QUEtiapine FUMARATE 100 MG TABLET (FP) PO SCH (22:34)
[2022-10-25] MEDS: methaDONE 40 MG, methaDONE 30 MG PO SCH (05:54)
[2022-10-25] MEDS: diazePAM 5 MG TABLET PO SCH ×2 (05:54→17:49)
[2022-10-25] MEDS: GABAPENTIN 300 MG CAPSULE PO SCH ×3 (05:55→22:30)
[2022-10-25] MEDS: hydrOXYzine PAMOATE 25 MG CAPSULE (FP) PO PRN (10:13)
[2022-10-25] MEDS: diazePAM 5 MG TABLET PO PRN (10:15)
[2022-10-25] MEDS: PRENATAL VITAMINS W/ FOLIC ACID TABLET (FP) PO SCH (10:16)
[2022-10-25] MEDS: NICOTINE 14 MG/24 HOURS TOPICAL PATCH TD SCH (12:48)
[2022-10-25] MEDS: METHOCARBAMOL 500 MG TABLET PO PRN (22:30)
[2022-10-25] MEDS: QUEtiapine FUMARATE 100 MG TABLET (FP) PO SCH (22:30)
[2022-10-25] MEDS: THIAMINE HCL 100 MG TABLET (FP) PO SCH (22:30)
[2022-10-25] MEDS: MELATONIN 5 MG TABLETS PO SCH (22:30)
[2022-10-26] MEDS: methaDONE 40 MG, methaDONE 30 MG PO SCH (05:39)
[2022-10-26] MEDS: GABAPENTIN 300 MG CAPSULE PO SCH ×3 (05:40→22:02)
[2022-10-26] MEDS: hydrOXYzine PAMOATE 25 MG CAPSULE (FP) PO PRN ×3 (05:41→22:02)
[2022-10-26] MEDS ORDERED: diazePAM 5 MG TABLET PO ONE (06:00)
[2022-10-26] MEDS: PRENATAL VITAMINS W/ FOLIC ACID TABLET (FP) PO SCH (09:56)
[2022-10-26] MEDS: LISINOPRIL 20 MG TABLET PO SCH (09:56)
[2022-10-26] MEDS: NICOTINE 14 MG/24 HOURS TOPICAL PATCH TD SCH (09:57)
[2022-10-26 12:54] VITALS: RESP 18
[2022-10-26] MEDS: METHOCARBAMOL 500 MG TABLET PO PRN (17:48)
[2022-10-26] MEDS: THIAMINE HCL 100 MG TABLET (FP) PO SCH (22:02)
[2022-10-26] MEDS: MELATONIN 5 MG TABLETS PO SCH (22:02)
[2022-10-26] MEDS: QUEtiapine FUMARATE 100 MG TABLET (FP) PO SCH (22:02)
[2022-10-27] MEDS: methaDONE 40 MG, methaDONE 30 MG PO SCH (05:41)
[2022-10-27] MEDS: GABAPENTIN 300 MG CAPSULE PO SCH (05:41)
[2022-10-27] MEDS: hydrOXYzine PAMOATE 25 MG CAPSULE (FP) PO PRN (05:43)
[2022-10-27] MEDS: METHOCARBAMOL 500 MG TABLET PO PRN (05:43)
[2022-10-27 09:54] VITALS: BP 123/68; PULSE 67; TEMP 97.8
[2022-10-27] MEDS: LISINOPRIL 20 MG TABLET PO SCH (10:01)
[2022-10-27] MEDS: PRENATAL VITAMINS W/ FOLIC ACID TABLET (FP) PO SCH (10:01)
[2022-10-27] MEDS: NICOTINE 14 MG/24 HOURS TOPICAL PATCH TD SCH (10:02)
== END 2022-10-27 10:19 | disposition home or self-care (01) | DRG 773 ==
LOC: YASAS 14:19 → Y3N 20:24
PROVIDERS: ADMIT Allergy & Immunology; ATTEND Surgery
PROC: HZ2ZZZZ Detoxification Services for Substance Abuse Treatment (ICD-10-PCS; principal; 2022-10-22)
DX: F10.230 Alcohol dependence with withdrawal, uncomplicated (principal); F11.20 Opioid dependence, uncomplicated; F14.20 Cocaine dependence, uncomplicated; F12.20 Cannabis dependence, uncomplicated; F17.210 Nicotine dependence, cigarettes, uncomplicated; F19.24 Other psychoactive substance dependence with psychoactive substance-induced mood disorder; F31.9 Bipolar disorder, unspecified; I10 Essential (primary) hypertension; G47.00 Insomnia, unspecified; M54.40 Lumbago with sciatica, unspecified side; G89.29 Other chronic pain; R76.8 Other specified abnormal immunological findings in serum; Z86.11 Personal history of tuberculosis
CPT/HCPCS: 36415; 80053; 85027; 86593; 86780; 87389; 87635; 87811

== ENCOUNTER 2024-10-14 09:37 | Inpatient (IN) | payer OTHER ==
[2024-10-14 10:09] VITALS: BMI 26.3
[2024-10-14] MEDS ORDERED: guaiFENesin 600 MG TABLET.ER (FP) PO PRN (10:22)
[2024-10-14] MEDS ORDERED: MAG HYDROX/AL HYDROX/SIMETH 30 ML UNIT-DOSE CUP PO PRN (10:22)
[2024-10-14] MEDS ORDERED: DICYCLOMINE HCL 10 MG CAPSULE PO PRN (10:22)
[2024-10-14] MEDS ORDERED: NALOXONE (NARCAN) HCL 4 MG/0.1 ML SPRAY NS PRN (10:22)
[2024-10-14] MEDS ORDERED: ONDANSETRON *ODT* 4 MG TABLET SL PRN (10:22)
[2024-10-14] MEDS ORDERED: ACETAMINOPHEN 325 MG TABLET (FP) PO PRN (10:22)
[2024-10-14] MEDS ORDERED: IBUPROFEN 400 MG TABLET (FP) PO PRN (10:22)
[2024-10-14] MEDS ORDERED: BENZOCAINE/MENTHOL (CHLORASEPTIC ) LOZENGE MM PRN (10:22)
[2024-10-14] MEDS ORDERED: POLYETHYLENE GLYCOL (HEALTHYLAX) 3350 17 GM PACKET PO PRN (10:22)
[2024-10-14] MEDS ORDERED: BISMUTH SUBSALICYLATE 524 MG/30 ML PO PRN (10:22)
[2024-10-14] MEDS ORDERED: IBUPROFEN 600 MG TABLET (FP) PO PRN (10:22)
[2024-10-14] MEDS ORDERED: LOPERAMIDE HCL 2 MG CAPSULE PO PRN (10:22)
[2024-10-14] MEDS ORDERED: BENZONATATE 200 MG CAPSULE PO PRN (10:22)
[2024-10-14] MEDS ORDERED: MAGNESIUM HYDROX 2400MG/30ML ORAL SUSPENSION 30 ML CUP PO PRN (10:22)
[2024-10-14] MEDS ORDERED: LISINOPRIL 10 MG TABLET ONE (12:09)
[2024-10-14] MEDS ORDERED: NICOTINE 14 MG/24 HOURS TOPICAL PATCH TD ONE (12:09)
[2024-10-14] MEDS ORDERED: PRENATAL VITAMINS W/ FOLIC ACID TABLET (FP) PO ONE (12:10)
[2024-10-14] MEDS: NICOTINE 14 MG/24 HOURS TOPICAL PATCH TD SCH (12:11)
[2024-10-14] MEDS: PRENATAL VITAMINS W/ FOLIC ACID TABLET (FP) PO SCH (12:11)
[2024-10-14] MEDS: LISINOPRIL 20 MG TABLET PO ONE (12:34)
[2024-10-14] MEDS: GABAPENTIN 300 MG CAPSULE PO SCH (13:24)
[2024-10-14] MEDS: ACAMPROSATE CALCIUM 333 MG TABLET.DR PO SCH (13:24)
[2024-10-14] MEDS ORDERED: ACAMPROSATE CALCIUM 333 MG TABLET.DR PO SCH (14:00)
[2024-10-14] MEDS: THIAMINE 100 MG TABLET PO SCH (22:02)
[2024-10-14] MEDS: MELATONIN 5 MG TABLETS PO SCH (22:03)
[2024-10-14] MEDS: PANTOPRAZOLE 40 MG TABLET PO SCH (22:03)
[2024-10-14] MEDS: BACLOFEN 10 MG TABLET (FP) PO SCH (22:03)
[2024-10-15] MEDS: LISINOPRIL 20 MG TABLET PO SCH (10:08)
[2024-10-15 10:42] LABS: MCHC 32.6 g/dl (32.3-36.5); MEAN CELL VOLUME 93.6 fl (79.0-92.2); MEAN PLT VOLUME 12.0 fl (9.4-12.4); RDW 13.8 % (12.2-16.1)
[2024-10-15 11:01] LABS: GLUCOSE,RANDOM 105.0 mg/dL (74-106); TOT PROT 6.8 g/dl (6.4-8.2)
[2024-10-15 11:02] LABS: CO2 28.0 mmol/L (21-32)
[2024-10-15 11:04] LABS: ALK PHOS 67.0 U/L (40-150)
[2024-10-15 11:06] LABS: SGOT/AST 15.0 U/L (5-34); SGPT/ALT 8.0 U/L (0-55)
[2024-10-15 11:07] LABS: CREATININE 0.7 mg/dL (0.55-1.3)
[2024-10-15 13:27] LABS: SYPHILIS W/ RPR CONF REACTIVE (NONREACTIVE)
[2024-10-16] MEDS: NICOTINE POLACRILEX 2 MG GUM BUC PRN (05:20)
[2024-10-16 11:50] LABS: RPR REFLEX REACTIVE 1:1 (NONREACTIVE)
[2024-10-17] MEDS: hydrOXYzine PAMOATE 25 MG CAPSULE (FP) PO PRN (17:17)
[2024-10-17] MEDS: METHOCARBAMOL 500 MG TABLET PO PRN (22:26)
[2024-10-18 06:15] VITALS: PULSE 61
[2024-10-18 09:55] VITALS: BP 124/78; RESP 15; TEMP 97.1
== END 2024-10-18 12:19 | disposition home or self-care (01) | DRG 773 ==
LOC: YASAS 09:37 → Y3N 12:25
PROVIDERS: ADMIT Allergy & Immunology; ATTEND Allergy & Immunology
PROC: HZ2ZZZZ Detoxification Services for Substance Abuse Treatment (ICD-10-PCS; principal; 2024-10-14)
DX: F10.230 Alcohol dependence with withdrawal, uncomplicated (principal); F11.20 Opioid dependence, uncomplicated; F14.10 Cocaine abuse, uncomplicated; F17.210 Nicotine dependence, cigarettes, uncomplicated; F31.9 Bipolar disorder, unspecified; I10 Essential (primary) hypertension; M54.41 Lumbago with sciatica, right side; M54.42 Lumbago with sciatica, left side; G89.29 Other chronic pain
CPT/HCPCS: 36415; 80053; 80307; 85027; 86593; 86780; 93005; 93010; J0475

== ENCOUNTER 2024-12-05 10:46 | Inpatient (IN) | payer OTHER ==
[2024-12-05 11:31] VITALS: BMI 25.8
[2024-12-05] MEDS ORDERED: BENZOCAINE/MENTHOL (CHLORASEPTIC ) LOZENGE MM PRN (14:12)
[2024-12-05] MEDS ORDERED: MAGNESIUM HYDROX 2400MG/30ML ORAL SUSPENSION 30 ML CUP PO PRN (14:12)
[2024-12-05] MEDS ORDERED: NALOXONE (NARCAN) HCL 4 MG/0.1 ML SPRAY NS PRN (14:12)
[2024-12-05] MEDS ORDERED: BISMUTH SUBSALICYLATE 524 MG/30 ML PO PRN (14:12)
[2024-12-05] MEDS ORDERED: DICYCLOMINE HCL 10 MG CAPSULE PO PRN (14:12)
[2024-12-05] MEDS ORDERED: NICOTINE 7 MG/24 HOURS TOPICAL PATCH TD PRN (14:12)
[2024-12-05] MEDS ORDERED: MAG HYDROX/AL HYDROX/SIMETH 30 ML UNIT-DOSE CUP PO PRN (14:12)
[2024-12-05] MEDS ORDERED: guaiFENesin 600 MG TABLET.ER (FP) PO PRN (14:12)
[2024-12-05] MEDS ORDERED: ACETAMINOPHEN 325 MG TABLET (FP) PO PRN (14:12)
[2024-12-05] MEDS ORDERED: ONDANSETRON *ODT* 4 MG TABLET SL PRN (14:12)
[2024-12-05] MEDS ORDERED: LOPERAMIDE HCL 2 MG CAPSULE PO PRN (14:12)
[2024-12-05] MEDS ORDERED: POLYETHYLENE GLYCOL (HEALTHYLAX) 3350 17 GM PACKET PO PRN (14:12)
[2024-12-05] MEDS ORDERED: IBUPROFEN 400 MG TABLET (FP) PO PRN (14:12)
[2024-12-05] MEDS ORDERED: BENZONATATE 200 MG CAPSULE PO PRN (14:12)
[2024-12-05] MEDS ORDERED: LISINOPRIL 10 MG TABLET ONE (14:36)
[2024-12-05] MEDS: PANTOPRAZOLE 40 MG TABLET PO SCH (14:55)
[2024-12-05] MEDS: LISINOPRIL 20 MG TABLET PO SCH (14:56)
[2024-12-05] MEDS: METHOCARBAMOL 500 MG TABLET PO PRN (17:19)
[2024-12-05] MEDS: THIAMINE 100 MG TABLET PO SCH (22:03)
[2024-12-05] MEDS: MELATONIN 5 MG TABLETS PO SCH (22:03)
[2024-12-06] MEDS: PRENATAL VITAMINS W/ FOLIC ACID TABLET (FP) PO SCH (10:16)
[2024-12-06 10:46] LABS: MCHC 33.3 g/dl (32.3-36.5); MEAN CELL VOLUME 90.4 fl (79.0-92.2); MEAN PLT VOLUME 11.2 fl (9.4-12.4); RDW 13.3 % (12.2-16.1)
[2024-12-06 10:56] LABS: GLUCOSE,RANDOM 111 mg/dL (74-106)
[2024-12-06 10:57] LABS: TOT PROT 7.0 g/dl (6.4-8.2)
[2024-12-06 10:58] LABS: CO2 26 mmol/L (21-32)
[2024-12-06 10:59] LABS: ALK PHOS 68 U/L (40-150)
[2024-12-06 11:02] LABS: SGOT/AST 15 U/L (5-34); SGPT/ALT 8 U/L (0-55)
[2024-12-06 11:03] LABS: CREATININE 0.65 mg/dL (0.55-1.3)
[2024-12-06 12:23] LABS: SYPHILIS W/ RPR CONF REACTIVE (NONREACTIVE)
[2024-12-06] MEDS: FLUTICASONE/UMECLIDIN/VILANTER(100-62.5-25 TRELEGY ELLIPTA) INAHLER IH SCH (12:28)
[2024-12-06] MEDS: GABAPENTIN 300 MG CAPSULE PO SCH (14:38)
[2024-12-06 14:51] LABS: RPR REFLEX REACTIVE 1:2 (NONREACTIVE)
[2024-12-06] MEDS: NICOTINE POLACRILEX 2 MG GUM BUC PRN (17:26)
[2024-12-08] MEDS: IBUPROFEN 600 MG TABLET (FP) PO PRN (17:16)
[2024-12-10 08:50] VITALS: PULSE 61
[2024-12-10 12:42] VITALS: BP 127/73; RESP 16; TEMP 97.9
== END 2024-12-10 13:35 | disposition other institution (70) | DRG 773 ==
LOC: YASAS 10:46 → Y3N 14:44
PROVIDERS: ADMIT Family Medicine; ATTEND Counselor Addiction (Substance Use Disorder)
PROC: HZ2ZZZZ Detoxification Services for Substance Abuse Treatment (ICD-10-PCS; principal; 2024-12-05)
DX: F10.230 Alcohol dependence with withdrawal, uncomplicated (principal); F11.23 Opioid dependence with withdrawal; F14.20 Cocaine dependence, uncomplicated; I10 Essential (primary) hypertension; K21.9 Gastro-esophageal reflux disease without esophagitis; F17.210 Nicotine dependence, cigarettes, uncomplicated; M54.42 Lumbago with sciatica, left side; M54.41 Lumbago with sciatica, right side; G89.29 Other chronic pain; F31.9 Bipolar disorder, unspecified
CPT/HCPCS: 36415; 80053; 80305; 80307; 85027; 86593; 86780; 87811; 93005; 93010